=== PATIENT | female | born 1985 ===

== ENCOUNTER 2019-10-03 13:45 | Inpatient (IN) | payer OTHER ==
[~2019-10-03] VITALS: Ht 154.9 cm; Wt 94.8 kg
== END 2019-10-19 14:02 | disposition home or self-care (01) | DRG 807 ==
LOC: LDR 10-16 23:28 → SURG-SUITE 10-17 00:22 → OB/GYN 10-19 13:45 → O/R 10-19 13:45 → SURG-SUITE 10-19 14:02
PROVIDERS: ADMIT Specialist
PROC: 10D07Z8 Extraction of Products of Conception, Other, Via Natural or Artificial Opening (ICD-10-PCS; principal; 2019-10-16)
PROC: 4A1HXFZ Monitoring of Products of Conception, Cardiac Rhythm, External Approach (ICD-10-PCS; 2019-10-16)
PROC: 3E033VJ Introduction of Other Hormone into Peripheral Vein, Percutaneous Approach (ICD-10-PCS; 2019-10-16)
DX: O70.0 First degree perineal laceration during delivery (principal); Z37.0 Single live birth; Z3A.39 39 weeks gestation of pregnancy